=== PATIENT | female | born 1940 | race Caucasian/White ===

== ENCOUNTER 2017-03-19 08:30 | Outpatient (RCR) | payer MEDICARE, SELFPAY | END 2017-07-03 23:59 | LOC: PT.CARL 14:00 | PROVIDERS: Referring Provider Orthopaedic Surgery; Visit Provider Orthopaedic Surgery | DX: M75.121 Complete rotator cuff tear or rupture of right shoulder, not specified as traumatic (principal); M75.21 Bicipital tendinitis, right shoulder | CPT/HCPCS: G8984; G8985; G8986; 97010; 97110; 97140; 97162 ==

== ENCOUNTER 2017-07-29 11:00 | Outpatient (RCR) | payer MEDICARE, SELFPAY | END 2017-07-29 13:00 | disposition home or self-care (01) | LOC: PT 11:00 | PROVIDERS: Family Provider Nurse Practitioner Family; PCP Internal Medicine Adolescent Medicine; Visit Provider Orthopaedic Surgery | DX: M75.121 Complete rotator cuff tear or rupture of right shoulder, not specified as traumatic (principal); M75.21 Bicipital tendinitis, right shoulder | CPT/HCPCS: 97110; 97140 ==

== ENCOUNTER → 2017-10-06 08:20 | Outpatient (CLI) | payer MEDICARE, SELFPAY ==
--- NOTE | 2017-10-06 08:24 | MM_ITS ---
MM Dig screening mamm BI w/CAD CAD Screening COMPARISON: Digital mammograms 04/12/2016 and 03/28/2015 INDICATION: There is no personal or family history of breast cancer. TECHNIQUE: Standard CC and MLO images were obtained. R2 CAD reviewed. FINDINGS: The breasts are composed primarily of fat with very minimal scattered fibroglandular densities noted. There are couple benign-appearing calcination is in each breast. There is a mole marker right breast. There is no suspicious lesion and no suspicious microcalcifications. IMPRESSION: Fatty type breast parenchyma with no suspicious lesion seen BI-RADS Category: 2 Benign Finding(s) RECOMMENDED FOLLOW-UP: 1YR - 1 YEAR FOLLOW-UP (A letter has been sent to the patient regarding results of the study.)
== END ==
PROVIDERS: Family Provider Nurse Practitioner Family; PCP Internal Medicine Adolescent Medicine; Visit Provider Nurse Practitioner Family
DX: Z12.31 Encounter for screening mammogram for malignant neoplasm of breast (principal)
CPT/HCPCS: 77067

== ENCOUNTER → 2017-10-31 13:46 | Outpatient (CLI) | payer MEDICARE, SELFPAY ==
--- NOTE | 2017-10-31 13:56 | XR_ITS ---
XR knee RT 3V Ordering Physician: Ofe Gamble Patient Age: 77 years: Female HISTORY: ITS.REASON: RT KNEE PAIN TECHNIQUE: 3 view right knee COMPARISON :None available FINDINGS . mild chondrocalcinosis both medial and lateral compartment.. This most typically seen with degenerative changes but can be seen with pseudogout/CPPD, or other conditions. Mild sharpening joint margins suggests minor early degenerative change. Joint spaces fairly well maintained with only borderline/mild narrowing at the medial compartment on this nonweightbearing study. . The tibia and femur appear intact at the knee with no fracture evident. There is suggestion of minimal joint effusion suprapatella bursa. A oblique line at the lateral superior margin of patella noted on the frontal projection but I believe is merely artifact and not seen on the other views.. If persistent pain at patella consider follow-up sunrise view IMPRESSION: ====== 1. No discrete acute fracture. 2. There is suggestion of a small joint effusion 3. Minimal Chondrocalcinosis at medial & lateral compartment. 4.. Minor degenerative changes
--- NOTE | 2017-10-31 14:22 | NVE_ITS ---
Venous Exam Indications: 729.5 Pain in limb. IMPRESSIONS Deep vein thrombosis involving the right gastrocnemius and right soleal Right lower extremity venous duplex evaluation. Doppler flow study including spectral analysis, color and ashton scale imaging. Location: Vascular laboratory. Patient status: Outpatient. CRITICAL FINDINGS - Reported to: YANI KUHN - Read back and verified. - 10/31/17 - 1500 - DVT Tables: Venous flow and imaging: + + + + Location Overall Flow properties + + + + Right common femoral Patent Normal phasicity; spontaneous; normal augmentation; compressible + + + + Right saphenofemoral Patent Compressible junction + + + + Right profunda femoral Patent Compressible + + + + Right femoral Patent Normal phasicity; spontaneous; normal augmentation; compressible + + + + Right greater saphenous Patent Normal phasicity; spontaneous; normal augmentation; compressible + + + + Right popliteal Patent Normal phasicity; spontaneous; normal augmentation; compressible + + + + Right posterior tibial Patent Compressible + + + + Right peroneal Patent Compressible + + + + Right gastrocnemius Partially occluded Partially compressible + + + + Right soleal Partially occluded Partially compressible + + + + (Report amended ) Electronically signed by: Sonu Crow [id number]
== END ==
PROVIDERS: PCP Nurse Practitioner Family; Visit Provider Nurse Practitioner Family
DX: M25.561 Pain in right knee (principal); M79.604 Pain in right leg; R20.2 Paresthesia of skin
CPT/HCPCS: 73562; 93971

== ENCOUNTER → 2018-06-18 11:11 | Outpatient (CLI) | payer MEDICARE, SELFPAY ==
[2018-06-18 15:09] LABS: Activated Partial Thrombo Time 26.4 seconds (23.6-34.0); INR 0.96 (0.9-1.1); Prothrombin Time 9.9 seconds (9.4-11.8)
[2018-06-19 18:43] LABS: Anti-Cardiolipin Antibody IgG <9 GPL U/mL (0-14)
[2018-06-20 18:38] LABS: Antinuclear Antibodies, IFA Negative (.); Protein S Antigen, Total 86 % (60-150); Protein S, Free 88 % (57-157)
[2018-06-22 06:30] LABS: Protein C Antigen 117 % (60-150)
== END ==
PROVIDERS: PCP Nurse Practitioner Family; Visit Provider Nurse Practitioner Family
DX: D68.59 Other primary thrombophilia (principal)
CPT/HCPCS: 36415; 81241; 85302; 85305; 85306; 85610; 85730; 86038; 86147

== ENCOUNTER → 2018-09-11 15:01 | Outpatient (CLI) | payer MEDICARE, SELFPAY ==
--- NOTE | 2018-09-11 | NVE_ITS ---
Venous Exam Indications: 729.5 Pain in limb. IMPRESSIONS No evidence of deep or superficial vein thrombosis involving the right lower extremity History: PMH: Deep vein thrombosis. Right lower extremity venous duplex evaluation. Doppler flow study including spectral analysis, color and ashton scale imaging. Location: Vascular laboratory. Patient status: Outpatient. CRITICAL FINDINGS - Reported to: Tamara Gamble's office - 09/11/2018 - 15:30 pm - Neg. for DVT Tables: Venous flow and imaging: + +-------+ + Location Overall Flow properties + +-------+ + Right common femoral Patent Normal phasicity; spontaneous; normal augmentation; compressible + +-------+ + Right saphenofemoral junction Patent Compressible + +-------+ + Right profunda femoral Patent Compressible + +-------+ + Right femoral Patent Normal phasicity; spontaneous; normal augmentation; compressible + +-------+ + Right greater saphenous Patent Normal phasicity; spontaneous; normal augmentation; compressible + +-------+ + Right popliteal Patent Normal phasicity; spontaneous; normal augmentation; compressible + +-------+ + Right posterior tibial Patent Compressible + +-------+ + Right peroneal Patent Compressible + +-------+ + Right gastrocnemius Patent Compressible + +-------+ + Right soleal Patent Compressible + +-------+ + (Report amended ) Electronically signed by: Kody Cowan [id number]
== END ==
PROVIDERS: PCP Nurse Practitioner Family; Visit Provider Nurse Practitioner Family
DX: M79.604 Pain in right leg (principal)
CPT/HCPCS: 93971

== ENCOUNTER → 2018-10-22 09:40 | Outpatient (CLI) | payer MEDICARE, SELFPAY ==
--- NOTE | 2018-10-22 09:43 | MM_ITS ---
MM Dig screening mamm BI w/CAD CAD Screening COMPARISON: Digital mammograms with CAD 10/06/2017 and 04/12/2016 INDICATION: There is no personal or family history of breast cancer TECHNIQUE: Standard CC and MLO images were obtained. R2 CAD reviewed. FINDINGS: The breasts are composed primarily of fat with minimal scattered fibroglandular densities in each breast. There is a mole marker right breast. There are couple benign-appearing microcalcifications in each breast. There is minimal arterial calcification in each breast. There is no suspicious lesion and no suspicious microcalcifications. IMPRESSION: Fatty type breast parenchyma with no suspicious lesion seen BI-RADS Category: 2 Benign Finding(s) RECOMMENDED FOLLOW-UP: 1YR - 1 YEAR FOLLOW-UP (A letter has been sent to the patient regarding results of the study.)
== END ==
PROVIDERS: PCP Nurse Practitioner Family; Visit Provider Nurse Practitioner Family
DX: Z12.31 Encounter for screening mammogram for malignant neoplasm of breast (principal)
CPT/HCPCS: 77067

== ENCOUNTER → 2019-10-25 10:43 | Outpatient (CLI) | payer MEDICARE, SELFPAY ==
--- NOTE | 2019-10-25 10:47 | MM_ITS ---
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 R2 CAD reviewed. Bilateral digital breast tomosynthesis included. FINDINGS: Low-density breast with diffuse fatty replacement. Of mammography is most optimal and sensitive breast of this character. Only scant scattered residual fibroglandular elements.. No dominant nor suspicious mass. No suspicious calcifications. No significant change since prior studies.. . Mole markers superior right breast and medial left breast again noted Tiny density at the deep left breast on CC view has been seen previous and not of concern, located at far far inferior breast on tomosynthesis thus possibly skin mole.. Bilateral follow-up 1 year recommended IMPRESSION: Stable bilateral mammogram-. Follow-up 1 year recommended No new findings of significant concern Low-densitybreast with diffuse fatty replacement. BI-RAD Category: 1 Negative FOLLOW-UP: 1YR 1 Year Follow-up (A letter has been sent to the patient regarding results of the study.) Dictated by: Sonu Crow MD 10/29/2019 09:03 Electronically signed by Sonu Crow MD in [place] 10/29/2019 09:03
== END ==
PROVIDERS: PCP Nurse Practitioner Family; Visit Provider Nurse Practitioner Family
DX: Z12.31 Encounter for screening mammogram for malignant neoplasm of breast (principal)
CPT/HCPCS: 77063; 77067

== ENCOUNTER 2020-07-25 08:00 | Outpatient (RCR) | payer MEDICARE, SELFPAY | END 2020-08-23 16:16 | disposition home or self-care (01) | LOC: PT.CARL 08:00 | PROVIDERS: PCP Nurse Practitioner Family; Visit Provider Nurse Practitioner Family | DX: M54.16 Radiculopathy, lumbar region (principal) | CPT/HCPCS: 97110; 97140; 97163 ==

== ENCOUNTER → 2020-08-01 13:25 | Outpatient (CLI) | payer MEDICARE, SELFPAY ==
--- NOTE | 2020-08-01 13:28 | MR_ITS ---
PROCEDURE: MR LUMBAR SPINE WO CON CLINICAL INDICATION: RADICULOPATHY, LUMBAR REGION LT LEG PAIN ON LATERAL ASPECT OF LEG. LBP. TINGLING IN LEG WHEN SITTING FOR LONG PERIODS. NO INJURY. SYMPTOMS [id number]. 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 3-D MIP and myelographic images are also rendered and reviewed FINDINGS: The spinal cord ends at the T12 level. There is reversal of the lumbar lordosis with multilevel degenerative disc disease. T10-T11: Mild degenerative disc disease with minimal bulging disc. T11-T12: Mild degenerative disc disease. Bulging disc is present slightly eccentric toward the right. T12-L1: Mild degenerative disc disease. L1-L2: Degenerative disc disease with mild facet and ligamentum hypertrophy. There is mild wedge deformity of L1 which is old. A Schmorl's node is present along the superior endplate. There is mild kyphosis at this level. Mild facet hypertrophic change with minimal bulging disc. L2-L3: Severe degenerative disc disease with bulging disc along with facet and ligamentum hypertrophy. The disc bulge is eccentric toward the left with moderate left lateral recess narrowing and moderate left foraminal narrowing. The degenerative disc disease has worsened since the previous exam L3-L4: Degenerative disc disease with mild bulging disc. There is retrolisthesis of L3 of 3 mm. The disc is eccentric toward the left. There is moderate facet and ligamentum hypertrophy with moderate to severe right lateral recess narrowing and moderate to severe right-sided foraminal narrowing. There is mild left lateral recess and moderate left-sided foraminal narrowing. These findings have somewhat progressed since the previous exam. L4-5: Degenerative disc disease with bulging disc. There is facet and ligamentum hypertrophy with moderate bilateral lateral recess narrowing and foraminal narrowing. This had a somewhat similar appearance on the previous exam. L5-S1: Bulging disc with degenerative disc disease with facet and ligamentum hypertrophy. There is 2-3 mm anterolisthesis of L5 with mild bilateral lateral recess and foraminal narrowing. Mild bulging disc. Overall not significantly changed. IMPRESSION: Multilevel lumbar spondylosis with bulging disc, facet and ligamentum hypertrophy, with lateral recess and foraminal narrowing. Overall, the findings have progressed since the previous exam. Please see above for detailed description at each level Dictated by: Kody Cowan MD 08/03/2020 12:43 Kody Cowan MD in [place] 08/03/2020 12:43
== END ==
PROVIDERS: PCP Nurse Practitioner Family; Visit Provider Nurse Practitioner Family
DX: M54.16 Radiculopathy, lumbar region (principal)
CPT/HCPCS: 72148; 76376

== ENCOUNTER → 2021-11-22 15:12 | Outpatient (CLI) | payer MEDICARE, SELFPAY ==
--- NOTE | 2021-11-22 15:15 | MM_ITS ---
PROCEDURE INFORMATION: Exam: MG Bilateral Screening 3D Mammography Exam date and time: 11/22/2021 3:16 PM Age: 81 years old Clinical indication: Screening examination TECHNIQUE: Imaging protocol: Bilateral Screening tomosynthesis and 2D mammography including computer-aided detection (CAD) when performed. COMPARISON: 1. MG MM DIG SCREENING MAMM BI W/CAD 10/25/2019 10:57 AM 2. MG [facility] MM Dig screening mamm BI w/CAD 10/22/2018 9:49 AM 3. MG [facility] MM Dig screening mamm BI w/CAD 10/06/2017 8:27 AM 4. MG [facility] DIG MAMM-SCREEN AB 04/12/2016 10:08 AM FINDINGS: MAMMOGRAPHY: Breast composition: There are scattered areas of fibroglandular density. Mass: None. Architectural distortion: No new or suspicious architectural distortion. Calcifications: No new or suspicious calcifications are present Asymmetric density: No new or suspicious asymmetric density is present Skin thickening: None. Axillary adenopathy: None. IMPRESSION: No mammographic evidence of malignancy. Recommend annual screening mammography unless otherwise clinically indicated. ASSESSMENT: BI-RADS category 1: Negative
== END ==
PROVIDERS: PCP Nurse Practitioner Family; Visit Provider Nurse Practitioner Family
DX: Z12.31 Encounter for screening mammogram for malignant neoplasm of breast (principal)
CPT/HCPCS: 77063; 77067

== ENCOUNTER → 2022-12-06 09:46 | Outpatient (CLI) | payer MEDICARE, SELFPAY ==
--- NOTE | 2022-12-06 10:41 | CA_ITS ---
FINAL REPORT TECHNIQUE: Ultrasound images of the deep venous system were obtained from the left groin to the calf veins. CLINICAL HISTORY: PAIN LT CALF X SEVERAL DAYS,NKI,PT ON ASA FINDINGS: The deep venous system is normally compressible. Normal flow is identified. IMPRESSION: No evidence of left lower extremity DVT. Reviewed, Interpreted and Dictated by Brendan Menendez MD Transcribed by Shreya Bermeo Authenticated and [facility]
--- NOTE | 2022-12-06 11:35 | XR_ITS ---
FINAL REPORT CLINICAL HISTORY: LEFT LOWER LEG PAIN ON LATERAL SIDE COMPARISON: None FINDINGS: There is no acute fracture or dislocation. The joint spaces are intact. There is no soft tissue abnormality. IMPRESSION: No acute fracture Reviewed, Interpreted and Dictated by Brendan Menendez MD Transcribed by Shelley Castro Authenticated and [facility]
== END ==
PROVIDERS: PCP Nurse Practitioner Family; Visit Provider Nurse Practitioner Family
DX: M79.605 Pain in left leg (principal)
CPT/HCPCS: 73590; 93971

== ENCOUNTER → 2023-01-15 16:43 | Outpatient (CLI) | payer MEDICARE, SELFPAY ==
--- NOTE | 2023-01-15 16:49 | MR_ITS ---
PROCEDURE INFORMATION: Exam: MR Lumbar Spine Without Contrast Exam date and time: 01/15/2023 4:44 PM Age: 82 years old Clinical indication: Low back pain; Additional info: Lumbar radiculopathy TECHNIQUE: Imaging protocol: Magnetic resonance imaging of the lumbar spine without contrast. COMPARISON: MR LUMBAR SPINE WO CON 08/01/2020 1:57 PM FINDINGS: Bones/joints: There is mild right convex scoliosis of the upper lumbar spine. The lumbar spine is again straightened. There is minimal retrolisthesis of L2 on L3 and L3 on L4 grade 1 which is unchanged. Mild superior endplate compression deformity of L1 is chronic with stable associated Schmorl's node. No acute osseous injury. Spinal cord: Visualized cord, conus medullaris and cauda equina are unremarkable without compression. T12-L1: T12-L1 minimal diffuse disc bulging without stenosis of the spinal canal is unchanged. Mild narrowing of the right neural foramen with asymmetric facet arthrosis is unchanged. L1-L2: L1-L2 minimal diffuse disc bulging without spinal canal stenosis is unchanged. There is mild narrowing of the right neural foramen which is unchanged with asymmetric facet arthrosis. L2-L3: L2-L3 has diffuse disc bulging with degenerative facet arthrosis eccentric to the left mildly narrows the spinal canal which is unchanged. Moderate left and mild right neural foraminal stenosis is unchanged as well. L3-L4: L3-L4 diffuse disc bulging and degenerative facet arthrosis with mild stenosis of the spinal canal is unchanged. Severe narrowing of both neural foramen is unchanged. L4-L5: L4-L5 diffuse disc bulging and facet arthrosis without significant stenosis of the spinal canal is unchanged. Small bilateral facet effusions. Moderate left greater than right neural foraminal narrowing is unchanged. L5-S1: L5-S1 mild diffuse disc bulging and facet arthrosis without significant stenosis of the spinal canal is unchanged. Mild narrowing of the right neural foramen is unchanged. Soft tissues: Unremarkable. Kidneys and ureters: Simple right renal cyst measures 1 cm in the upper pole. IMPRESSION: Multilevel degenerative disc disease is not significantly changed with 08/01/2020 MRI, as described. Stable mild spinal canal stenosis L2-L4.
== END ==
PROVIDERS: PCP Nurse Practitioner Family; Visit Provider Nurse Practitioner Family
DX: M54.16 Radiculopathy, lumbar region (principal)
CPT/HCPCS: 72148; 76376

== ENCOUNTER 2024-04-22 14:43 | Outpatient (CLI) | payer MEDICARE, SELFPAY ==
--- NOTE | 2024-04-22 | MR_ITS ---
FINAL REPORT CLINICAL HISTORY: low back pain that radiates into the left leg COMPARISON: 01/15/2023 FINDINGS: Multiplanar MR imaging of the lumbar spine was performed without contrast. On the sagittal T2-weighted images, decreased signal is seen throughout. There is mild loss of height at L2-3 and L3-4. There is lumbar scoliosis convex to the right of approximately 25 degrees. There is no evidence of fracture. No bony mass is identified. The conus is seen at approximately the L1 level and has an unremarkable appearance. L1-2: Mild diffuse disc bulge with mild right neuroforaminal narrowing. L2-3: Mild diffuse disc bulge with posterior lateral disc protrusions and moderate bilateral neuroforaminal narrowing. L3-4: Moderate diffuse disc bulge with facet hypertrophy. There is moderate central canal stenosis and moderate to high-grade bilateral neuroforaminal narrowing. L4-5: Moderate diffuse disc bulge with facet hypertrophy. There is moderate central canal stenosis and moderate to high-grade bilateral neuroforaminal narrowing. L5-S1: There is no significant canal stenosis or neural foraminal narrowing. IMPRESSION: Diffuse disc bulges at L3-4 and L4-5 with facet hypertrophy, moderate central canal stenosis and moderate bilateral neuroforaminal narrowing. 25 degrees of lumbar scoliosis convex to the right. Reviewed, Interpreted and Dictated by Brendan Menendez MD Transcribed by Mely Vang Authenticated and [facility]
== END 2024-04-22 23:59 | disposition home or self-care (01) ==
LOC: RAD 14:44
PROVIDERS: PCP Nurse Practitioner Family; Visit Provider Nurse Practitioner Family
DX: M54.16 Radiculopathy, lumbar region (principal)
CPT/HCPCS: 72148